=== PATIENT | female | born 1980 | race Caucasian/White ===

== ENCOUNTER 2017-04-03 05:38 | Day surgery (SDC) | payer MEDICAID ==
[2017-04-02 10:41] VITALS: Ht 162.6 cm; Wt 70.0 kg
[~2017-04-03] VITALS: Ht 162.6 cm; Wt 70.0 kg
[2017-04-03 06:18] VITALS: BP 124/67; PULSE 60; RESP 20
[2017-04-03] MEDS ORDERED: CEPH250S33 PO (06:32)
== END 2017-04-03 08:45 | disposition home or self-care (01) ==
LOC: SDS 05:38
PROVIDERS: ATTEND Specialist
DX: Z30.2 Encounter for sterilization (principal); Z53.9 Procedure and treatment not carried out, unspecified reason
CPT/HCPCS: 84703